=== PATIENT | female | born 1970 | race Caucasian/White ===

== ENCOUNTER 2016-03-05 12:09 | Emergency (ER) | payer BC ==
[~2016-03-05] VITALS: Ht 144.8 cm; Wt 74.4 kg
[2016-03-05 13:43] LABS: EOSINOPHIL (%) 0.3 % (0-5); HEMATOCRIT 39.8 % (36.0-46.0); IMMATURE GRANULOCYTE (%) 0.2 % (0.0-0.7); IMMATURE GRANULOCYTE COUNT 0.2 K/uL; LYMPHOCYTE COUNT 1.8 K/uL (1.0-2.8); MCHC 33.7 G/DL (30.0-36.0); MEAN PLAT.VOLUME 12.3 uM^3 (9.5-12.4); MONOCYTE (%) 4.9 % (3-12); MONOCYTE COUNT 0.5 K/uL (0-0.8); NEUTROPHIL (%) 76.7 % (45-76); PLATELET COUNT 219 K/uL (156-360); RBC DIS.WIDTH-SD 38.4 % (39-53); RED BLOOD COUNT 4.47 M/uL (3.80-5.20); WHITE BLOOD COUNT 10.4 K/uL (4.1-10.2)
[2016-03-05 13:53] LABS: CHLORIDE 104 mEq/L (99-109); POTASSIUM 4.5 mEq/L (3.7-5.4); SODIUM 136 mEq/L (136-147)
[2016-03-05 13:54] LABS: GLUCOSE 98 mg/dL (70-99)
[2016-03-05 13:56] LABS: ANION GAP 9 MEQ/L (2-14)
[2016-03-05 13:58] LABS: GFR ESTIMATE (CALCULATED) > 59 mL/min/
[2016-03-05 14:00] LABS: UREA NITROGEN (BUN) 11 mg/dL (9-23)
[2016-03-05 14:09] LABS: QUANTITATIVE HCG < 4.0 MIU/ML
[2016-03-05] MEDS ORDERED: ANTIVERT25 MG PO (15:47)
[2016-03-05 16:11] VITALS: BP 128/91
== END 2016-03-05 16:14 | disposition home or self-care (01) ==
LOC: EME 12:09
PROVIDERS: Emergency Medicine
DX: R42 Dizziness and giddiness (principal)
CPT/HCPCS: 70450; 80048; 84702; 85025; 93005; 99281; 99285; J2405

== ENCOUNTER 2017-01-01 06:48 | Day surgery (SDC) | payer BC ==
[~2017-01-01] VITALS: Ht 147.3 cm; Wt 74.8 kg
[~2017-01-01 06:48] MED LIST: ANTIVERT25 MG PO; PROAIR HFA8.5 GM IH
[2017-01-01 07:25] VITALS: BP 131/86
[2017-01-01 14:54] VITALS: BP 106/63
[2017-01-01 19:14] VITALS: BP 106/62
[2017-01-01 23:48] VITALS: BP 108/59
[2017-01-02 04:44] VITALS: BP 120/64
[2017-01-02 06:22] LABS: EOSINOPHIL (%) 0.2 % (0-5); HEMATOCRIT 33.3 % (36.0-46.0); IMMATURE GRANULOCYTE (%) 0.4 % (0.0-0.7); INSTRUMENT ABS NEUTROPHIL CT 6.1 K/uL; LYMPHOCYTE COUNT 2.9 K/uL (1.0-2.8); MCH 30.7 PG (29.0-34.0); MCHC 32.7 G/DL (30.0-36.0); MCV 93.8 FL (83-99); MEAN PLAT.VOLUME 12.5 uM^3 (9.5-12.4); MONOCYTE (%) 8.6 % (3-12); MONOCYTE COUNT 0.9 K/uL (0-0.8); NEUTROPHIL (%) 61.3 % (45-76); NEUTROPHIL COUNT 6.1 K/uL (1.8-6.4); PLATELET COUNT 191 K/uL (156-360); RBC DIS.WIDTH-CV 11.7 % (11.8-14.6); RBC DIS.WIDTH-SD 39.8 % (39-53); RED BLOOD COUNT 3.55 M/uL (3.80-5.20); WHITE BLOOD COUNT 9.9 K/uL (4.1-10.2)
[2017-01-02 07:04] LABS: ANION GAP 8 MEQ/L (2-14); CHLORIDE 106 MEQ/L (99-109); SAMPLE HEMOLYSIS CHECK 0; SAMPLE ICTERIC CHECK 0; SAMPLE LIPEMIA CHECK 0; SODIUM 137 MEQ/L (136-147)
[2017-01-02 07:09] LABS: GFR ESTIMATE (CALCULATED) > 59 mL/min/; GLUCOSE 95 mg/dL (70-99); UREA NITROGEN (BUN) 9 mg/dL (9-23)
[2017-01-02 07:14] VITALS: BP 97/54
[2017-01-02 11:32] VITALS: BP 92/51
== END 2017-01-02 13:53 | disposition home or self-care (01) ==
LOC: SDC 06:48 → ENRESERV 12:26 → 2SOUTH 12:29 → ENRESERV 13:05 → SDC 13:40 → 2EASTP 14:50
PROVIDERS: Obstetrics & Gynecology Gynecology
DX: N80.0 Endometriosis of uterus (principal); N80.3 Endometriosis of pelvic peritoneum; N73.6 Female pelvic peritoneal adhesions (postinfective); D25.2 Subserosal leiomyoma of uterus; N83.02 Follicular cyst of left ovary; N83.01 Follicular cyst of right ovary; N94.6 Dysmenorrhea, unspecified; E66.9 Obesity, unspecified; Z68.35 Body mass index [BMI] 35.0-35.9, adult; J45.909 Unspecified asthma, uncomplicated
CPT/HCPCS: 80048; 85025; 87086; 88307; 99202; G0378; J0330; J0690; J1170; J1644; J1885; J2001; J2250; J2405; J2765; J3010; J3475; J7050; J7120; Q0175